=== PATIENT | female | born 1990 | race Caucasian/White ===

== ENCOUNTER 2020-07-05 01:05 | Emergency (ER) | payer MEDICAID ==
[~2020-07-05] VITALS: Ht 154.9 cm; Wt 65.8 kg
[2020-07-05 01:05] VITALS: BP_SYST 129
== END 2020-07-05 01:20 | disposition home or self-care (01) ==
LOC: EDBD 01:05 → SED 01:05
DX: F15.90 Other stimulant use, unspecified, uncomplicated (principal); F14.90 Cocaine use, unspecified, uncomplicated; Z32.02 Encounter for pregnancy test, result negative
CPT/HCPCS: 81025; 99283